=== PATIENT | male | born 1980 | race African-American/Black ===

== ENCOUNTER 2020-11-10 23:16 | Emergency (ER) | payer SELFPAY ==
[~2020-11-10] VITALS: Ht 172.7 cm; Wt 84.1 kg
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
[2020-11-11] MEDS ORDERED: LIDOCAINE/EPI/TETRACAINE TOPICAL GEL 3 ML. TP ONE
[2020-11-11] MEDS ORDERED: AMOXICILLIN/K CLAV 875/125MG TABLET. PO ONE
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
[2020-11-11] MEDS ORDERED: HYDR-2155 PO (00:44)
[2020-11-11] MEDS ORDERED: AMOX1TAB61 PO (00:44)
[2020-11-11 00:55] VITALS: BP 114/60
[2020-11-11] MEDS ORDERED: DIPH,PERTUSS(ACELL),TET VAC/PF 0.5 ML SYRINGE. VAX IM ONE (01:00)
[2020-11-11] MEDS ORDERED: oxyCODONE/APAP 5/325 1 TAB TABLET PO ONE (01:00)
== END 2020-11-11 01:02 | disposition home or self-care (01) ==
LOC: ER 23:16
DX: S62.612A Displaced fracture of proximal phalanx of right middle finger, initial encounter for closed fracture (principal); S61.214A Laceration without foreign body of right ring finger without damage to nail, initial encounter; W51.XXXA Accidental striking against or bumped into by another person, initial encounter; Y93.89 Activity, other specified; Y92.89 Other specified places as the place of occurrence of the external cause; Y99.8 Other external cause status
CPT/HCPCS: 12001; 29130; 73120; 90471; 90715; 99283-25

== ENCOUNTER 2020-11-11 18:49 | Emergency (ER) | payer SELFPAY ==
[~2020-11-11] VITALS: Ht 177.8 cm; Wt 90.0 kg
[~2020-11-11 18:49] MED LIST: AMOX1TAB61 PO; HYDR-2155 PO
[2020-11-11] MEDS ORDERED: HYDROcodone/APAP 5/325MG 1 TAB TABLET PO ONE (19:15)
[2020-11-11] MEDS ORDERED: CEPHALEXIN 250 MG CAPSULE PO ONE (19:15)
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
[2020-11-11 19:45] VITALS: BP 110/60
== END 2020-11-11 19:48 | disposition home or self-care (01) ==
LOC: ER 18:49
DX: S62.632A Displaced fracture of distal phalanx of right middle finger, initial encounter for closed fracture (principal); Y08.89XA Assault by other specified means, initial encounter; Y93.89 Activity, other specified; Y92.89 Other specified places as the place of occurrence of the external cause; Y99.8 Other external cause status
CPT/HCPCS: 12001; 29130; 99283

== ENCOUNTER 2021-05-10 20:26 | Emergency (ER) | payer SELFPAY ==
[~2021-05-10] VITALS: Ht 177.8 cm; Wt 82.5 kg
[2021-05-10] MEDS ORDERED: LIDOCAINE/EPI/TETRACAINE TOPICAL GEL 3 ML. TP ONE (20:57)
[2021-05-10] MEDS ORDERED: IBUPROFEN 800 MG TABLET. PO ONE (20:57)
[2021-05-10] MEDS ORDERED: AMOXICILLIN/K CLAV 875/125MG TABLET. PO ONE (21:00)
[2021-05-10] MEDS ORDERED: ACETAMINOPHEN 500 MG TABLET PO ONE (21:00)
[2021-05-10] MEDS ORDERED: IBUPROFEN 600 MG TABLET. PO ONE (21:00)
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
[2021-05-10] MEDS ORDERED: AMOX1TAB61 PO (21:11)
[2021-05-10] MEDS ORDERED: oxyCODONE IR 5 MG TABLET PO PRN (21:15)
[2021-05-10 21:42] VITALS: BP 112/75
== END 2021-05-10 21:42 | disposition home or self-care (01) ==
LOC: ER 20:26
DX: K61.0 Anal abscess (principal); N49.2 Inflammatory disorders of scrotum
CPT/HCPCS: 10160; 99284